=== PATIENT | female | born 1930 | race Caucasian/White ===

== ENCOUNTER 2018-07-25 07:42 | Inpatient (IN) | payer MEDICARE, MEDICAID ==
[~2018-07-25] VITALS: Ht 154.9 cm; Wt 72.7 kg
[~2018-07-25 07:42] MED LIST: ALBU18HF2 IH; COU1T PO; HCTZ25T PO; LISI-600 PO; LOP25T PO; PRED20TA PO; ZOC40T PO
[2018-07-25] MEDS ORDERED: normal saline 1000ML IV soln IVB ONE (08:30)
[2018-07-25 09:35] LABS: BASOPHILS % (AUTO) 0 % (0-1); EOSINOPHILS % (AUTO) 0 % (0-6); HEMATOCRIT 39.7 % (35.0-45.0); LYMPHOCYTES # (AUTO) 0.5 X10'3 (1.1-4.8); LYMPHOCYTES % (AUTO) 4.5 % (21-51); MEAN CORPUSCULAR HGB CONC 32.8 % (33.0-36.5); MEAN CORPUSCULAR VOLUME 94.5 FL (78-98); MONOCYTES # (AUTO) 0.5 X10'3 (0-0.9); MONOCYTES % (AUTO) 3.9 % (2-12); NEUTROPHILS # (AUTO) 10.6 X10'3 (1.8-7.7); NEUTROPHILS % (AUTO) 91.6 % (42-75); PLATELET COUNT 197 X10'3 (140-440); RED CELL DISTRIBUTION WIDTH 13.4 % (11.5-14.5); WHITE BLOOD COUNT 11.6 X10'3 (4.5-11.0)
[2018-07-25 09:48] LABS: ALANINE AMINOTRANSFERASE 23 U/L (12-78); ALBUMIN 3.3 G/DL (3.4-5.0); ALBUMIN/GLOBULIN RATIO 0.8 (1.1-1.5); ALKALINE PHOSPHATASE 71 IU/L (46-116); ANION GAP 10 (8-16); ASPARTATE AMINO TRANSFERASE 24 U/L (10-37); BILIRUBIN,TOTAL 0.6 MG/DL (0.1-1.0); BLOOD UREA NITROGEN 23 MG/DL (7-18); BUN/CREATININE RATIO 18.5 (6.6-38.0); CALCIUM 8.5 MG/DL (8.5-10.1); CHLORIDE 102 MMOL/L (99-107); CREATININE 1.24 MG/DL (0.40-0.90); GLUCOSE 149 MG/DL (70-104); POTASSIUM 4.3 MMOL/L (3.5-5.1); SODIUM 143 MMOL/L (135-145); TOTAL CARBON DIOXIDE 31.4 MMOL/L (24-32); TOTAL PROTEIN 7.3 G/DL (6.4-8.2); eGFR 41 ML/MIN
[2018-07-25 10:00] LABS: PLATELET ESTIMATE NORMAL; TOTAL CELLS COUNTED 100
[2018-07-25] MEDS ORDERED: levoFLOXACIN 750MG TABLET PO ONE (10:10)
[2018-07-25] MEDS ORDERED: DABI150C PO (10:37)
[2018-07-25] MEDS ORDERED: ASPI-41 PO (10:39)
[2018-07-25] MEDS ORDERED: ondansetron/PF 4mg/2ml inj IV PRN (14:05)
[2018-07-25] MEDS ORDERED: potassium Cl 40MEQ/NS 500ml 500 ML IV PRN ×2 (14:05)
[2018-07-25] MEDS ORDERED: magnesium Cl slow-release 64mg tablet PO PRN (14:05)
[2018-07-25] MEDS ORDERED: potassium Cl 20 mEq SR tablet PO PRN ×2 (14:05)
[2018-07-25] MEDS ORDERED: magnesium 4gm in 100ml NS 100 ML IV PRN (14:05)
[2018-07-25] MEDS ORDERED: ipratropium 0.5 MG/2.5ML nebule IH PRN (16:25)
[2018-07-25 19:30] VITALS: BP 147/64
[2018-07-25] MEDS: acetaminophen 325mg tablet PO PRN (20:17)
[2018-07-25] MEDS: metoprolol tartrate 25mg tablet PO SCH (20:33)
[2018-07-25] MEDS: methylPREDNISolone sod succ/PF 40mg inj. IV SCH (20:33)
[2018-07-25] MEDS: atorvastatin 20mg tablet PO SCH (20:33)
[2018-07-25] MEDS: lisinopril 20mg tablet PO SCH (20:33)
[2018-07-25] MEDS: dabigatran 150mg capsule PO SCH (20:35)
[2018-07-25 22:15] VITALS: BP 119/44
[2018-07-26 05:22] LABS: BASOPHILS % (AUTO) 0 % (0-1); EOSINOPHILS % (AUTO) 0 % (0-6); HEMATOCRIT 35.6 % (35.0-45.0); HEMOGLOBIN 11.6 g/dl (12.0-16.0); LYMPHOCYTES # (AUTO) 0.6 X10'3 (1.1-4.8); LYMPHOCYTES % (AUTO) 4.5 % (21-51); MEAN CORPUSCULAR HEMOGLOBIN 30.6 PG (27.0-31.0); MEAN CORPUSCULAR HGB CONC 32.6 % (33.0-36.5); MEAN CORPUSCULAR VOLUME 93.8 FL (78-98); MEAN PLATELET VOLUME 9.3 FL (7.4-10.4); MONOCYTES # (AUTO) 0.2 X10'3 (0-0.9); MONOCYTES % (AUTO) 1.3 % (2-12); NEUTROPHILS # (AUTO) 11.7 X10'3 (1.8-7.7); NEUTROPHILS % (AUTO) 94.2 % (42-75); PLATELET COUNT 204 X10'3 (140-440); RED CELL DISTRIBUTION WIDTH 13.6 % (11.5-14.5); WHITE BLOOD COUNT 12.4 X10'3 (4.5-11.0)
[2018-07-26 05:50] LABS: ALBUMIN 2.6 G/DL (3.4-5.0); ANION GAP 6 (8-16); BLOOD UREA NITROGEN 22 MG/DL (7-18); BUN/CREATININE RATIO 19.1 (6.6-38.0); CALCIUM 8.4 MG/DL (8.5-10.1); CHLORIDE 104 MMOL/L (99-107); CREATININE 1.15 MG/DL (0.40-0.90); GLUCOSE 133 MG/DL (70-104); MAGNESIUM 1.8 MG/DL (1.5-2.4); POTASSIUM 4.5 MMOL/L (3.5-5.1); SODIUM 142 MMOL/L (135-145); eGFR 45 ML/MIN
[2018-07-26] MEDS: K and/or MAG REPLACEMENT MC SCH (08:00)
[2018-07-26] MEDS: methylPREDNISolone sod succ/PF 40mg inj. IV SCH ×2 (08:42→20:40)
[2018-07-26] MEDS: pantoprazole 40mg Tablet.DR PO SCH (08:48)
[2018-07-26] MEDS: lisinopril 20mg tablet PO SCH ×2 (08:49→20:57)
[2018-07-26] MEDS: aspirin 81mg tablet.DR PO SCH (08:49)
[2018-07-26] MEDS: metoprolol tartrate 25mg tablet PO SCH ×2 (08:50→20:40)
[2018-07-26 09:07] VITALS: BP 141/52
[2018-07-26] MEDS: azithromycin/NS 500mg/250ml 250 ML IV SCH (09:34)
[2018-07-26] MEDS: dabigatran 150mg capsule PO SCH ×2 (10:49→20:40)
[2018-07-26] MEDS: CefTRIAXone/D5W-Rocephin 1gm 50 ML IV SCH (10:53)
[2018-07-26 12:42] VITALS: BP 143/94
[2018-07-26] MEDS ORDERED: ipratropium/albuterol 3ml nebule NEB PRN (14:25)
[2018-07-26] MEDS: ipratropium/albuterol 3ml nebule NEB SCH ×3 (16:08→23:00)
[2018-07-26 18:00] VITALS: BP 133/53
[2018-07-26] MEDS: lactobacillus rhamnosus 10,000 MMU CELLS/CAPSULE PO SCH (20:39)
[2018-07-26] MEDS: atorvastatin 20mg tablet PO SCH (20:40)
[2018-07-26] MEDS: acetaminophen 325mg tablet PO PRN (21:20)
[2018-07-26 22:00] VITALS: BP 120/102
[2018-07-27 06:00] VITALS: BP 145/82
[2018-07-27 07:26] LABS: ALBUMIN 2.8 G/DL (3.4-5.0); ANION GAP 10 (8-16); BLOOD UREA NITROGEN 34 MG/DL (7-18); BUN/CREATININE RATIO 30.4 (6.6-38.0); CALCIUM 8.7 MG/DL (8.5-10.1); CHLORIDE 103 MMOL/L (99-107); CREATININE 1.12 MG/DL (0.40-0.90); GLUCOSE 144 MG/DL (70-104); MAGNESIUM 2.1 MG/DL (1.5-2.4); SODIUM 139 MMOL/L (135-145); TOTAL CARBON DIOXIDE 26.2 MMOL/L (24-32); eGFR 46 ML/MIN
[2018-07-27 07:30] LABS: POTASSIUM 4.3 MMOL/L (3.5-5.1)
[2018-07-27] MEDS: CefTRIAXone/D5W-Rocephin 1gm 50 ML IV SCH (07:54)
[2018-07-27] MEDS: pantoprazole 40mg Tablet.DR PO SCH (07:54)
[2018-07-27] MEDS: methylPREDNISolone sod succ/PF 40mg inj. IV SCH ×2 (07:54→20:07)
[2018-07-27] MEDS: aspirin 81mg tablet.DR PO SCH (07:55)
[2018-07-27] MEDS: lactobacillus rhamnosus 10,000 MMU CELLS/CAPSULE PO SCH ×2 (07:55→20:08)
[2018-07-27] MEDS: dabigatran 150mg capsule PO SCH ×2 (07:55→20:07)
[2018-07-27] MEDS: lisinopril 20mg tablet PO SCH ×2 (07:55→20:08)
[2018-07-27] MEDS: K and/or MAG REPLACEMENT MC SCH (08:00)
[2018-07-27] MEDS: metoprolol tartrate 25mg tablet PO SCH ×2 (08:00→20:08)
[2018-07-27 08:04] LABS: BASOPHILS % (AUTO) 0.2 % (0-1); EOSINOPHILS % (AUTO) 0 % (0-6); HEMATOCRIT 36.2 % (35.0-45.0); HEMOGLOBIN 11.8 g/dl (12.0-16.0); LYMPHOCYTES # (AUTO) 0.7 X10'3 (1.1-4.8); LYMPHOCYTES % (AUTO) 4.1 % (21-51); MEAN CORPUSCULAR HEMOGLOBIN 30.6 PG (27.0-31.0); MEAN CORPUSCULAR HGB CONC 32.5 % (33.0-36.5); MEAN CORPUSCULAR VOLUME 94.2 FL (78-98); MEAN PLATELET VOLUME 9.3 FL (7.4-10.4); MONOCYTES # (AUTO) 0.5 X10'3 (0-0.9); MONOCYTES % (AUTO) 2.8 % (2-12); NEUTROPHILS # (AUTO) 15.5 X10'3 (1.8-7.7); NEUTROPHILS % (AUTO) 92.9 % (42-75); PLATELET COUNT 237 X10'3 (140-440); RED BLOOD COUNT 3.85 X10'6 (4.20-5.60); RED CELL DISTRIBUTION WIDTH 13.1 % (11.5-14.5); WHITE BLOOD COUNT 16.6 X10'3 (4.5-11.0)
[2018-07-27] MEDS: ipratropium/albuterol 3ml nebule NEB SCH ×5 (08:37→23:01)
[2018-07-27] MEDS: azithromycin/NS 500mg/250ml 250 ML IV SCH (09:53)
[2018-07-27 10:00] VITALS: BP 150/40
[2018-07-27 13:59] LABS: TOTAL CELLS COUNTED 100
[2018-07-27 14:00] LABS: PLATELET ESTIMATE NORMAL
[2018-07-27 18:00] VITALS: BP 136/62
[2018-07-27] MEDS: atorvastatin 20mg tablet PO SCH (20:08)
[2018-07-27] MEDS: guaiFENesin ER 600mg tablet PO SCH (20:08)
[2018-07-27 22:00] VITALS: BP 135/53
[2018-07-28 06:00] VITALS: BP 140/49
[2018-07-28 06:05] LABS: BASOPHILS % (AUTO) 0.1 % (0-1); EOSINOPHILS % (AUTO) 0 % (0-6); HEMATOCRIT 32.4 % (35.0-45.0); HEMOGLOBIN 10.7 g/dl (12.0-16.0); LYMPHOCYTES # (AUTO) 0.5 X10'3 (1.1-4.8); LYMPHOCYTES % (AUTO) 3.3 % (21-51); MEAN CORPUSCULAR HEMOGLOBIN 31.2 PG (27.0-31.0); MEAN CORPUSCULAR HGB CONC 33.1 % (33.0-36.5); MEAN CORPUSCULAR VOLUME 94.1 FL (78-98); MEAN PLATELET VOLUME 9.6 FL (7.4-10.4); MONOCYTES # (AUTO) 0.7 X10'3 (0-0.9); MONOCYTES % (AUTO) 4.8 % (2-12); NEUTROPHILS # (AUTO) 13.9 X10'3 (1.8-7.7); NEUTROPHILS % (AUTO) 91.8 % (42-75); PLATELET COUNT 222 X10'3 (140-440); RED BLOOD COUNT 3.44 X10'6 (4.20-5.60); RED CELL DISTRIBUTION WIDTH 13.1 % (11.5-14.5); WHITE BLOOD COUNT 15.1 X10'3 (4.5-11.0)
[2018-07-28 06:33] LABS: ALBUMIN 2.5 G/DL (3.4-5.0); ANION GAP 8 (8-16); BLOOD UREA NITROGEN 42 MG/DL (7-18); BUN/CREATININE RATIO 33.6 (6.6-38.0); CALCIUM 8.4 MG/DL (8.5-10.1); CHLORIDE 104 MMOL/L (99-107); CREATININE 1.25 MG/DL (0.40-0.90); GLUCOSE 138 MG/DL (70-104); MAGNESIUM 2.2 MG/DL (1.5-2.4); POTASSIUM 4.4 MMOL/L (3.5-5.1); SODIUM 141 MMOL/L (135-145); TOTAL CARBON DIOXIDE 29.1 MMOL/L (24-32); eGFR 41 ML/MIN
[2018-07-28] MEDS: CefTRIAXone/D5W-Rocephin 1gm 50 ML IV SCH (07:22)
[2018-07-28] MEDS: pantoprazole 40mg Tablet.DR PO SCH (07:34)
[2018-07-28] MEDS: lactobacillus rhamnosus 10,000 MMU CELLS/CAPSULE PO SCH ×2 (07:35→20:00)
[2018-07-28] MEDS: methylPREDNISolone sod succ/PF 40mg inj. IV SCH ×2 (07:35→19:58)
[2018-07-28] MEDS: aspirin 81mg tablet.DR PO SCH (07:35)
[2018-07-28] MEDS: dabigatran 150mg capsule PO SCH ×2 (07:41→20:00)
[2018-07-28] MEDS: guaiFENesin ER 600mg tablet PO SCH (07:41)
[2018-07-28] MEDS: lisinopril 20mg tablet PO SCH ×2 (07:42→20:00)
[2018-07-28] MEDS: metoprolol tartrate 25mg tablet PO SCH ×2 (07:43→20:00)
[2018-07-28] MEDS: K and/or MAG REPLACEMENT MC SCH (08:00)
[2018-07-28] MEDS: ipratropium/albuterol 3ml nebule NEB SCH ×4 (08:45→20:17)
[2018-07-28] MEDS: azithromycin/NS 500mg/250ml 250 ML IV SCH (09:19)
[2018-07-28 10:00] VITALS: BP 133/45
[2018-07-28 18:00] VITALS: BP 142/50
[2018-07-28] MEDS: atorvastatin 20mg tablet PO SCH (20:02)
[2018-07-28 22:00] VITALS: BP 98/71
[2018-07-28] MEDS: acetaminophen 325mg tablet PO PRN (23:57)
[2018-07-29 06:00] VITALS: BP 132/56
[2018-07-29 06:22] LABS: ALBUMIN 2.7 G/DL (3.4-5.0); ANION GAP 6 (8-16); BLOOD UREA NITROGEN 47 MG/DL (7-18); CALCIUM 8.1 MG/DL (8.5-10.1); CHLORIDE 105 MMOL/L (99-107); CREATININE 1.62 MG/DL (0.40-0.90); GLUCOSE 163 MG/DL (70-104); MAGNESIUM 2.2 MG/DL (1.5-2.4); POTASSIUM 4.3 MMOL/L (3.5-5.1); SODIUM 143 MMOL/L (135-145); TOTAL CARBON DIOXIDE 31.8 MMOL/L (24-32); eGFR 30 ML/MIN
[2018-07-29 06:32] LABS: BASOPHILS % (AUTO) 0 % (0-1); EOSINOPHILS % (AUTO) 0 % (0-6); HEMATOCRIT 33.7 % (35.0-45.0); HEMOGLOBIN 11.1 g/dl (12.0-16.0); LYMPHOCYTES # (AUTO) 0.4 X10'3 (1.1-4.8); MEAN CORPUSCULAR HEMOGLOBIN 30.7 PG (27.0-31.0); MEAN CORPUSCULAR HGB CONC 32.8 % (33.0-36.5); MEAN CORPUSCULAR VOLUME 93.8 FL (78-98); MEAN PLATELET VOLUME 9.9 FL (7.4-10.4); MONOCYTES # (AUTO) 0.7 X10'3 (0-0.9); MONOCYTES % (AUTO) 5.6 % (2-12); NEUTROPHILS # (AUTO) 12.3 X10'3 (1.8-7.7); NEUTROPHILS % (AUTO) 91.4 % (42-75); PLATELET COUNT 234 X10'3 (140-440); RED CELL DISTRIBUTION WIDTH 13.4 % (11.5-14.5); WHITE BLOOD COUNT 13.4 X10'3 (4.5-11.0)
[2018-07-29] MEDS: CefTRIAXone/D5W-Rocephin 1gm 50 ML IV SCH (07:40)
[2018-07-29] MEDS: methylPREDNISolone sod succ/PF 40mg inj. IV SCH (07:46)
[2018-07-29] MEDS: lactobacillus rhamnosus 10,000 MMU CELLS/CAPSULE PO SCH ×2 (07:46→19:32)
[2018-07-29] MEDS: aspirin 81mg tablet.DR PO SCH (07:46)
[2018-07-29] MEDS: dabigatran 150mg capsule PO SCH ×2 (07:47→19:32)
[2018-07-29] MEDS: pantoprazole 40mg Tablet.DR PO SCH (07:47)
[2018-07-29] MEDS: K and/or MAG REPLACEMENT MC SCH (07:58)
[2018-07-29] MEDS: lisinopril 20mg tablet PO SCH (08:01)
[2018-07-29] MEDS: metoprolol tartrate 25mg tablet PO SCH ×2 (08:01→19:34)
[2018-07-29] MEDS: ipratropium/albuterol 3ml nebule NEB SCH ×5 (08:36→23:00)
[2018-07-29] MEDS: azithromycin/NS 500mg/250ml 250 ML IV SCH (09:11)
[2018-07-29 10:00] VITALS: BP 155/61
[2018-07-29] MEDS: famotidine 20mg tablet PO SCH ×2 (10:00→19:32)
[2018-07-29 18:00] VITALS: BP 110/41
[2018-07-29] MEDS: acetaminophen 325mg tablet PO PRN (19:32)
[2018-07-29] MEDS: atorvastatin 20mg tablet PO SCH (19:32)
[2018-07-29 22:00] VITALS: BP 148/62
[2018-07-30 02:26] VITALS: BP 137/58
[2018-07-30 06:00] VITALS: BP 144/53
[2018-07-30 06:42] LABS: BASOPHILS % (AUTO) 0 % (0-1); EOSINOPHILS # (AUTO) 0.1 X10'3 (0-0.9); EOSINOPHILS % (AUTO) 0.5 % (0-6); HEMATOCRIT 36.3 % (35.0-45.0); HEMOGLOBIN 11.7 g/dl (12.0-16.0); LYMPHOCYTES % (AUTO) 7.1 % (21-51); MEAN CORPUSCULAR HEMOGLOBIN 30.3 PG (27.0-31.0); MEAN CORPUSCULAR HGB CONC 32.1 % (33.0-36.5); MEAN CORPUSCULAR VOLUME 94.4 FL (78-98); MEAN PLATELET VOLUME 9.2 FL (7.4-10.4); MONOCYTES # (AUTO) 1.4 X10'3 (0-0.9); MONOCYTES % (AUTO) 9.7 % (2-12); NEUTROPHILS # (AUTO) 11.6 X10'3 (1.8-7.7); NEUTROPHILS % (AUTO) 82.7 % (42-75); PLATELET COUNT 283 X10'3 (140-440); RED BLOOD COUNT 3.85 X10'6 (4.20-5.60)
[2018-07-30] MEDS: ipratropium/albuterol 3ml nebule NEB SCH ×4 (07:00→19:46)
[2018-07-30 07:19] LABS: ALBUMIN 2.7 G/DL (3.4-5.0); ANION GAP 6 (8-16); BLOOD UREA NITROGEN 44 MG/DL (7-18); BUN/CREATININE RATIO 38.6 (6.6-38.0); CALCIUM 8.3 MG/DL (8.5-10.1); CHLORIDE 108 MMOL/L (99-107); CREATININE 1.14 MG/DL (0.40-0.90); GLUCOSE 93 MG/DL (70-104); MAGNESIUM 2.4 MG/DL (1.5-2.4); POTASSIUM 4.4 MMOL/L (3.5-5.1); SODIUM 145 MMOL/L (135-145); TOTAL CARBON DIOXIDE 30.7 MMOL/L (24-32); eGFR 45 ML/MIN
[2018-07-30] MEDS: K and/or MAG REPLACEMENT MC SCH (08:00)
[2018-07-30] MEDS: CefTRIAXone/D5W-Rocephin 1gm 50 ML IV SCH (09:27)
[2018-07-30] MEDS: lactobacillus rhamnosus 10,000 MMU CELLS/CAPSULE PO SCH ×2 (09:31→20:32)
[2018-07-30] MEDS: pantoprazole 40mg Tablet.DR PO SCH (09:31)
[2018-07-30] MEDS: aspirin 81mg tablet.DR PO SCH (09:32)
[2018-07-30] MEDS: metoprolol tartrate 25mg tablet PO SCH (09:33)
[2018-07-30] MEDS: dabigatran 150mg capsule PO SCH ×2 (09:33→20:32)
[2018-07-30] MEDS: predniSONE 20 mg tablet PO SCH (09:34)
[2018-07-30] MEDS: lisinopril 20mg tablet PO SCH (09:36)
[2018-07-30 10:00] VITALS: BP 132/67
[2018-07-30] MEDS: azithromycin/NS 500mg/250ml 250 ML IV SCH (10:59)
[2018-07-30 18:00] VITALS: BP 143/60
[2018-07-30] MEDS ORDERED: metoprolol tartrate 25mg tablet PO SCH (20:00)
[2018-07-30] MEDS: atorvastatin 20mg tablet PO SCH (20:33)
[2018-07-30] MEDS: famotidine 20mg tablet PO SCH (20:33)
[2018-07-30 22:00] VITALS: BP 114/42
[2018-07-31 06:00] VITALS: BP 119/60
[2018-07-31] MEDS: ipratropium/albuterol 3ml nebule NEB SCH ×2 (07:37→10:06)
[2018-07-31] MEDS: K and/or MAG REPLACEMENT MC SCH (08:00)
[2018-07-31] MEDS: CefTRIAXone/D5W-Rocephin 1gm 50 ML IV SCH (09:11)
[2018-07-31] MEDS: aspirin 81mg tablet.DR PO SCH (09:16)
[2018-07-31] MEDS: lactobacillus rhamnosus 10,000 MMU CELLS/CAPSULE PO SCH (09:16)
[2018-07-31] MEDS: predniSONE 20 mg tablet PO SCH (09:17)
[2018-07-31] MEDS ORDERED: metoprolol tartrate 12.5mg (1/2 tablet) PO SCH (09:30)
[2018-07-31] MEDS: pantoprazole 40mg Tablet.DR PO SCH (09:31)
[2018-07-31] MEDS: lisinopril 20mg tablet PO SCH (09:31)
[2018-07-31] MEDS: dabigatran 150mg capsule PO SCH (09:31)
[2018-07-31 10:00] VITALS: BP 128/43
[2018-07-31] MEDS: azithromycin/NS 500mg/250ml 250 ML IV SCH (10:44)
== END 2018-07-31 12:45 | DRG 871 ==
LOC: ER 07:43 → ED HOLD 14:01 → ORTHO 4S 19:30
PROVIDERS: ADMIT Internal Medicine; ATTEND Family Medicine
DX: A41.9 Sepsis, unspecified organism (principal); J18.9 Pneumonia, unspecified organism; J96.21 Acute and chronic respiratory failure with hypoxia; J44.1 Chronic obstructive pulmonary disease with (acute) exacerbation; J44.0 Chronic obstructive pulmonary disease with (acute) lower respiratory infection; D64.9 Anemia, unspecified; E78.5 Hyperlipidemia, unspecified; E83.51 Hypocalcemia; I25.10 Atherosclerotic heart disease of native coronary artery without angina pectoris; R00.1 Bradycardia, unspecified; I12.9 Hypertensive chronic kidney disease with stage 1 through stage 4 chronic kidney disease, or unspecified chronic kidney disease; I48.2 Chronic atrial fibrillation; N18.9 Chronic kidney disease, unspecified; Z66 Do not resuscitate; Z90.49 Acquired absence of other specified parts of digestive tract; Z95.1 Presence of aortocoronary bypass graft; Z99.81 Dependence on supplemental oxygen; Z79.82 Long term (current) use of aspirin; Z82.3 Family history of stroke
CPT/HCPCS: 36415; 71045; 80048; 80053; 83605; 83735; 83880; 85025; 87070; 93005; 93306; 94640; 94667; 94760; 97110; 97116; 97161; 97530; 99285; G0378; J0456; J0696; J2405; J2920; J7512

== ENCOUNTER 2018-09-11 04:51 | Inpatient (IN) | payer MEDICARE, MEDICAID | END 2018-09-14 15:27 | LOC: ER 04:51 → ED HOLD 07:20 → SUR 3N 08:51 | DX: J96.90 Respiratory failure, unspecified, unspecified whether with hypoxia or hypercapnia (principal); N17.9 Acute kidney failure, unspecified; I50.30 Unspecified diastolic (congestive) heart failure; J44.1 Chronic obstructive pulmonary disease with (acute) exacerbation; E78.5 Hyperlipidemia, unspecified; E86.0 Dehydration; Z95.1 Presence of aortocoronary bypass graft; I25.10 Atherosclerotic heart disease of native coronary artery without angina pectoris; I48.2 Chronic atrial fibrillation; I34.0 Nonrheumatic mitral (valve) insufficiency ==

== ENCOUNTER 2019-02-27 21:27 | Inpatient (IN) | payer MEDICARE, MEDICAID ==
[~2019-02-27] VITALS: Ht 154.9 cm; Wt 71.9 kg
[~2019-02-27 21:27] MED LIST changes: -COU1T PO; +DABI150C PO; +FURO20TA4 PO; -HCTZ25T PO; +POTA10TA10 PO; -PRED20TA PO
[2019-02-27] MEDS ORDERED: ipratropium/albuterol 3ml nebule ONE (21:45)
[2019-02-27] MEDS ORDERED: methylPREDNISolone sod succ 125mg/2ml vial IV ONE (21:45)
[2019-02-27] MEDS ORDERED: ipratropium/albuterol 3ml nebule NEB ONE (21:45)
--- NOTE | 2019-02-27 21:54 | NUR ---
HAM, CAREGIVER, CELL PHONE, LIVES WITH PT
[2019-02-27] MEDS ORDERED: albuterol 2.5 MG/3 ML nebule CONTNEB PRN (22:00)
[2019-02-27 22:07] LABS: BASOPHILS # (AUTO) 0.1 X10'3 (0-0.2); BASOPHILS % (AUTO) 0.9 % (0-1); EOSINOPHILS # (AUTO) 0.7 X10'3 (0-0.9); EOSINOPHILS % (AUTO) 5.6 % (0-6); HEMATOCRIT 38.2 % (35.0-45.0); HEMOGLOBIN 12.3 g/dl (12.0-16.0); LYMPHOCYTES # (AUTO) 3.1 X10'3 (1.1-4.8); MEAN CORPUSCULAR HEMOGLOBIN 29.9 PG (27.0-31.0); MEAN CORPUSCULAR HGB CONC 32.1 g/dL (33.0-36.5); MEAN CORPUSCULAR VOLUME 93.1 FL (78-98); MEAN PLATELET VOLUME 9.7 FL (7.4-10.4); MONOCYTES # (AUTO) 1.1 X10'3 (0-0.9); MONOCYTES % (AUTO) 8.8 % (2-12); NEUTROPHILS # (AUTO) 7.8 X10'3 (1.8-7.7); NEUTROPHILS % (AUTO) 60.7 % (42-75); PLATELET COUNT 250 X10'3 (140-440); RED CELL DISTRIBUTION WIDTH 15.4 % (11.5-14.5); WHITE BLOOD COUNT 12.8 X10'3 (4.5-11.0)
--- NOTE | 2019-02-27 22:17 | NUR ---
GAVE PT SVN TREATMENT THEN CONTINUOUS NEB TX, PER DR EMERY HOLD BIPAP AND ABG UNTIL PT RE-EVALUATED AFTER TREATMENTS TO SEE IF ABG AND BIPAP STILL NEEDED
[2019-02-27 22:21] LABS: PARTIAL THROMBOPLASTIN TIME 26 SECONDS (22-32)
[2019-02-27 22:27] LABS: ALANINE AMINOTRANSFERASE 19 U/L (12-78); ALBUMIN 3.4 G/DL (3.4-5.0); ALBUMIN/GLOBULIN RATIO 0.8 (1.1-1.5); ALKALINE PHOSPHATASE 78 IU/L (46-116); ANION GAP 4 (8-16); ASPARTATE AMINO TRANSFERASE 15 U/L (10-37); BILIRUBIN,TOTAL 0.4 MG/DL (0.1-1.0); BLOOD UREA NITROGEN 30 MG/DL (7-18); BUN/CREATININE RATIO 21.3 (6.6-38.0); CALCIUM 9.4 MG/DL (8.5-10.1); CHLORIDE 102 MMOL/L (99-107); CREATININE 1.41 MG/DL (0.40-0.90); GLUCOSE 187 MG/DL (70-104); SODIUM 138 MMOL/L (135-145); TOTAL CARBON DIOXIDE 32.3 MMOL/L (24-32); TOTAL PROTEIN 7.8 G/DL (6.4-8.2); eGFR 35 ML/MIN
[2019-02-27 22:34] LABS: POTASSIUM 6.3 MMOL/L (3.5-5.1)
--- NOTE | 2019-02-27 22:39 | NUR ---
Continuous neb running as ordered. Pt resting in gurney and warm blankets given for comfort.
[2019-02-27] MEDS ORDERED: dextrose 50%-water 50ml dispensing syringe IV ONE (22:40)
[2019-02-27] MEDS ORDERED: furosemide 10 MG/1 ML 10ml inj IV ONE (22:40)
[2019-02-27] MEDS ORDERED: insulin regular, human 10 units/0.1 ml syringe IV ONE (22:40)
[2019-02-27] MEDS ORDERED: sodium bicarbonate (8.4%) 1 mEq/ml syringe IV ONE (22:40)
[2019-02-27] MEDS ORDERED: calcium chloride 100 MG/1 ML inj IV ONE (22:40)
[2019-02-27] MEDS ORDERED: furosemide 40mg/4ml inj IV ONE (23:05)
[2019-02-27 23:11] LABS: ABG HCO3 29.5 mmol/L (22.0-26.0); ABG OXYGEN SATURATION 99.2 % (95-98); ABG PCO2 (T) 58.4 mmHg (32.0-45.0); ABG PH (T) 7.319 (7.350-7.450); ABG PO2 (T) 241.8 mmHg (83-108); ALLEN'S TEST Positive; FCOHb 0.2 % (0.5-1.5); FLOW 5 L/min; FMetHb 0.2 % (0.3-1.12); FO2Hb 98.8 % (94-100); PATIENT TEMPERATURE 36.7; RESPIRATORY RATE (OBSERVED) 24 b/min; TOTAL HEMOGLOBIN 12.8 G/dl (12.0-16.0)
[2019-02-28] MEDS ORDERED: magnesium 4gm in 100ml NS 100 ML IV PRN (01:30)
[2019-02-28] MEDS ORDERED: ondansetron/PF 4mg/2ml inj IV PRN (01:30)
[2019-02-28] MEDS ORDERED: mag hydrox/Alum hydrox/simeth 30ml oral suspension PO PRN (01:30)
[2019-02-28] MEDS ORDERED: potassium CL 10mEq/100ml bag 100 ML IV PRN ×2 (01:30)
[2019-02-28] MEDS ORDERED: docusate sod 100mg capsule PO PRN (01:30)
[2019-02-28] MEDS ORDERED: magnesium 2GM in 50ml NS 50 ML IV PRN (01:30)
[2019-02-28] MEDS ORDERED: acetaminophen 325mg tablet PO PRN (01:30)
[2019-02-28] MEDS ORDERED: potassium Cl 20 mEq SR tablet PO PRN ×2 (01:30)
[2019-02-28] MEDS ORDERED: magnesium Cl slow-release 64mg tablet PO PRN (01:30)
[2019-02-28 02:00] VITALS: BP 176/71
[2019-02-28] MEDS ORDERED: ipratropium/albuterol 3ml nebule NEB SCH (02:00)
[2019-02-28 02:22] LABS: ALANINE AMINOTRANSFERASE 20 U/L (12-78); ALBUMIN 3.5 G/DL (3.4-5.0); ALBUMIN/GLOBULIN RATIO 0.8 (1.1-1.5); ALKALINE PHOSPHATASE 75 IU/L (46-116); ANION GAP 6 (8-16); ASPARTATE AMINO TRANSFERASE 19 U/L (10-37); BILIRUBIN,TOTAL 0.7 MG/DL (0.1-1.0); BLOOD UREA NITROGEN 34 MG/DL (7-18); CALCIUM 10.8 MG/DL (8.5-10.1); CHLORIDE 103 MMOL/L (99-107); CREATININE 1.36 MG/DL (0.40-0.90); GLUCOSE 128 MG/DL (70-104); SODIUM 140 MMOL/L (135-145); TOTAL CARBON DIOXIDE 31.4 MMOL/L (24-32); eGFR 37 ML/MIN
[2019-02-28 02:27] LABS: POTASSIUM 5.2 MMOL/L (3.5-5.1)
--- NOTE | 2019-02-28 06:10 | NUR ---
Patient in room PCU 3012. I have received report from Lanny CAMACHO and had the opportunity to ask questions and assume patient care.
--- NOTE | 2019-02-28 06:25 | NUR ---
Problems reprioritized. Patient report given, questions answered & plan of care reviewed with Gary CAMACHO.
[2019-02-28 06:50] VITALS: BP 153/76
[2019-02-28] MEDS: ipratropium/albuterol 3ml nebule NEB SCH ×4 (07:10→19:45)
[2019-02-28] MEDS: metoprolol tartrate 25mg tablet PO SCH ×2 (07:27→19:53)
[2019-02-28] MEDS: apixaban 5mg tablet PO SCH ×2 (07:27→19:53)
[2019-02-28] MEDS: montelukast 10mg tablet PO SCH (07:28)
[2019-02-28] MEDS: K and/or MAG REPLACEMENT MC SCH (08:00)
[2019-02-28] MEDS: furosemide 40mg/4ml inj IV SCH ×2 (08:49→19:53)
[2019-02-28 11:00] VITALS: BP 142/57
--- NOTE | 2019-02-28 12:04 | NUR ---
Malnutrition consult/nutrition consult regarding pt not wearing her dentures: Pt s/p BSS 02/[address] shades mechanical soft food with ground meat and thin liquids d/t difficulty chewing r/t absence of teeth. Pt documented with 50-75% first meal likely meeting nutrient needs for geriatric age. Current wt is stable with UBW per EMR wt hx. Pt with no significant decrease in muscle strength however with 1+ trace edema to right leg and 2+ edema to left leg. Pt currently lacks a minimum of two criteria for malnutrition. Will continue to follow. Addendum: 02/28/19 at [address] Amended: Links added.
[2019-02-28 15:00] VITALS: BP 131/53
[2019-02-28] MEDS: levoFLOXACIN-Levaquin 500mg/D5 100 ML IV SCH (17:33)
--- NOTE | 2019-02-28 18:25 | NUR ---
Problems reprioritized. Patient report given, questions answered & plan of care reviewed with Alannah CAMACHO.
[2019-02-28 19:00] VITALS: BP 111/45
[2019-02-28] MEDS ORDERED: albuterol 2.5 MG/3 ML nebule NEB SCH (20:00)
[2019-02-28] MEDS: atorvastatin 20mg tablet PO SCH (21:08)
[2019-02-28 23:00] VITALS: BP 117/41
[2019-03-01] MEDS: ipratropium/albuterol 3ml nebule NEB SCH ×7 (00:05→22:51)
[2019-03-01 03:00] VITALS: BP 121/47
[2019-03-01 06:00] VITALS: BP 109/44
--- NOTE | 2019-03-01 06:19 | NUR ---
Problems reprioritized. Patient report given, questions answered & plan of care reviewed with Catherine CAMACHO.
--- NOTE | 2019-03-01 06:19 | NUR ---
Patient in room PCU 3012. I have received report from JANICE Jaffe and had the opportunity to ask questions and assume patient care.
[2019-03-01 06:45] LABS: BASOPHILS # (AUTO) 0.1 X10'3 (0-0.2); BASOPHILS % (AUTO) 0.5 % (0-1); EOSINOPHILS % (AUTO) 0.3 % (0-6); HEMOGLOBIN 10.5 g/dl (12.0-16.0); LYMPHOCYTES # (AUTO) 1.5 X10'3 (1.1-4.8); LYMPHOCYTES % (AUTO) 9.2 % (21-51); MEAN CORPUSCULAR HGB CONC 32.9 g/dL (33.0-36.5); MEAN CORPUSCULAR VOLUME 91.1 FL (78-98); MEAN PLATELET VOLUME 9.9 FL (7.4-10.4); MONOCYTES # (AUTO) 1.3 X10'3 (0-0.9); NEUTROPHILS # (AUTO) 13.2 X10'3 (1.8-7.7); PLATELET COUNT 210 X10'3 (140-440); RED BLOOD COUNT 3.52 X10'6 (4.20-5.60); RED CELL DISTRIBUTION WIDTH 15.2 % (11.5-14.5); WHITE BLOOD COUNT 16.1 X10'3 (4.5-11.0)
[2019-03-01 07:10] LABS: ALANINE AMINOTRANSFERASE 17 U/L (12-78); ALBUMIN/GLOBULIN RATIO 0.8 (1.1-1.5); ANION GAP 8 (8-16); ASPARTATE AMINO TRANSFERASE 17 U/L (10-37); BILIRUBIN,TOTAL 0.3 MG/DL (0.1-1.0); BLOOD UREA NITROGEN 46 MG/DL (7-18); BUN/CREATININE RATIO 29.5 (6.6-38.0); CALCIUM 9.2 MG/DL (8.5-10.1); CHLORIDE 101 MMOL/L (99-107); CREATININE 1.56 MG/DL (0.40-0.90); GLUCOSE 109 MG/DL (70-104); MAGNESIUM 1.8 MG/DL (1.5-2.4); POTASSIUM 4.3 MMOL/L (3.5-5.1); SODIUM 141 MMOL/L (135-145); TOTAL CARBON DIOXIDE 32.1 MMOL/L (24-32); TOTAL PROTEIN 6.6 G/DL (6.4-8.2); eGFR 31 ML/MIN
[2019-03-01 07:11] LABS: ALKALINE PHOSPHATASE 59 IU/L (46-116)
[2019-03-01] MEDS: K and/or MAG REPLACEMENT MC SCH (07:13)
[2019-03-01] MEDS: apixaban 5mg tablet PO SCH ×2 (07:26→19:58)
[2019-03-01] MEDS: montelukast 10mg tablet PO SCH (07:26)
[2019-03-01] MEDS: metoprolol tartrate 25mg tablet PO SCH ×2 (07:31→19:59)
[2019-03-01] MEDS: levoFLOXACIN-Levaquin 500mg/D5 100 ML IV SCH (07:32)
[2019-03-01] MEDS: furosemide 40mg/4ml inj IV SCH ×2 (07:32→20:34)
[2019-03-01 11:00] VITALS: BP 117/36
--- NOTE | 2019-03-01 11:14 | NUR ---
PAGER ID: [phone] MESSAGE: [phone] Deborah Gilman. 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 pt. was asking to keep it at bedside. no current EMAR orders for this med. please advise. Erinn [phone] Addendum: 03/01/19 at 1754 by Erinn Kurtz RN took inhaler to the pharmacy. pt. is aware.
--- NOTE | 2019-03-01 13:33 | NUR ---
pt. had an episode of emesis around 0115. pt. stated that she had finished lunch about 5 minutes before hand and layed down in bed when it occurred. pt. had no bout of nausea before or after she threw up. pt. stated this has occurred before when she lays down to soon after eating. pt. shows no signs of distress.
[2019-03-01 15:00] VITALS: BP 113/36
[2019-03-01] MEDS ORDERED: acetaminophen 325mg tablet PO PRN (16:10)
--- NOTE | 2019-03-01 17:59 | NUR ---
[place] Medication Administration: For this medication-pass time frame, all medication were reviewed, dispensed, administered and documented per hospital policy by JANICE Plasencia.
--- NOTE | 2019-03-01 17:59 | NUR ---
[place] documentation: I have reviewed and agree with all interventions, assessments performed and documented by JANICE Plasencia.
[2019-03-01 18:00] VITALS: BP 103/42
--- NOTE | 2019-03-01 18:12 | NUR ---
Problems reprioritized. Patient report given, questions answered & plan of care reviewed with JANICE Jaffe.
--- NOTE | 2019-03-01 18:12 | NUR ---
Patient in room PCU 3012. I have received report from Erinn CAMACHO and had the opportunity to ask questions and assume patient care.
[2019-03-01] MEDS: lactobacillus rhamnosus 10,000 MMU CELLS/CAPSULE PO SCH (19:59)
[2019-03-01] MEDS: atorvastatin 20mg tablet PO SCH (20:04)
[2019-03-01 23:00] VITALS: BP 102/43
[2019-03-02 02:00] VITALS: BP 100/46
[2019-03-02] MEDS: ipratropium/albuterol 3ml nebule NEB SCH ×6 (02:45→23:37)
[2019-03-02 05:42] LABS: ALANINE AMINOTRANSFERASE 14 U/L (12-78); ALBUMIN 3.1 G/DL (3.4-5.0); ALBUMIN/GLOBULIN RATIO 0.8 (1.1-1.5); ALKALINE PHOSPHATASE 66 IU/L (46-116); ANION GAP 10 (8-16); ASPARTATE AMINO TRANSFERASE 17 U/L (10-37); BILIRUBIN,TOTAL 0.3 MG/DL (0.1-1.0); BLOOD UREA NITROGEN 51 MG/DL (7-18); BUN/CREATININE RATIO 28.3 (6.6-38.0); CALCIUM 9.1 MG/DL (8.5-10.1); CHLORIDE 100 MMOL/L (99-107); GLUCOSE 90 MG/DL (70-104); MAGNESIUM 1.8 MG/DL (1.5-2.4); POTASSIUM 4.1 MMOL/L (3.5-5.1); SODIUM 141 MMOL/L (135-145); TOTAL CARBON DIOXIDE 31.4 MMOL/L (24-32); TOTAL PROTEIN 6.9 G/DL (6.4-8.2); eGFR 27 ML/MIN
[2019-03-02 06:00] VITALS: BP 107/48
--- NOTE | 2019-03-02 06:20 | NUR ---
Patient in room PCU 3012. I have received report from JANICE Jaffe and had the opportunity to ask questions and assume patient care.
--- NOTE | 2019-03-02 06:50 | NUR ---
Problems reprioritized. Patient report given, questions answered & plan of care reviewed with Madi CAMACHO.
[2019-03-02 07:00] LABS: BASOPHILS # (AUTO) 0.1 X10'3 (0-0.2); BASOPHILS % (AUTO) 0.9 % (0-1); EOSINOPHILS # (AUTO) 0.5 X10'3 (0-0.9); EOSINOPHILS % (AUTO) 4.2 % (0-6); HEMATOCRIT 34.4 % (35.0-45.0); HEMOGLOBIN 11.3 g/dl (12.0-16.0); LYMPHOCYTES # (AUTO) 2.3 X10'3 (1.1-4.8); LYMPHOCYTES % (AUTO) 17.8 % (21-51); MEAN CORPUSCULAR HEMOGLOBIN 30.1 PG (27.0-31.0); MEAN CORPUSCULAR HGB CONC 32.9 g/dL (33.0-36.5); MEAN CORPUSCULAR VOLUME 91.5 FL (78-98); MEAN PLATELET VOLUME 9.4 FL (7.4-10.4); MONOCYTES # (AUTO) 1.3 X10'3 (0-0.9); MONOCYTES % (AUTO) 10.3 % (2-12); NEUTROPHILS # (AUTO) 8.5 X10'3 (1.8-7.7); NEUTROPHILS % (AUTO) 66.8 % (42-75); PLATELET COUNT 218 X10'3 (140-440); RED BLOOD COUNT 3.76 X10'6 (4.20-5.60); WHITE BLOOD COUNT 12.8 X10'3 (4.5-11.0)
[2019-03-02] MEDS: K and/or MAG REPLACEMENT MC SCH (07:03)
[2019-03-02] MEDS: furosemide 40mg/4ml inj IV SCH ×2 (07:05→22:01)
[2019-03-02] MEDS: metoprolol tartrate 25mg tablet PO SCH ×3 (07:05→22:14)
[2019-03-02] MEDS: montelukast 10mg tablet PO SCH (07:05)
[2019-03-02] MEDS: lactobacillus rhamnosus 10,000 MMU CELLS/CAPSULE PO SCH ×2 (07:05→22:01)
[2019-03-02] MEDS: apixaban 5mg tablet PO SCH ×2 (07:05→22:02)
[2019-03-02 11:00] VITALS: BP 103/52
[2019-03-02 15:00] VITALS: BP 124/87
[2019-03-02 18:15] VITALS: BP 81/43
--- NOTE | 2019-03-02 18:24 | NUR ---
Problems reprioritized. Patient report given, questions answered & plan of care reviewed with JANICE Oropeza.
--- NOTE | 2019-03-02 18:57 | NUR ---
Patient in room U 3012. I have received report from Edson Singh and had the opportunity to ask questions and assume patient care. Addendum: 03/02/19 at 1858 by Lucy Martinez RN Amended: Links added.
--- NOTE | 2019-03-02 21:30 | NUR ---
pt on side resting eyes closed without changes
[2019-03-02 22:00] VITALS: BP 122/59
[2019-03-02] MEDS: atorvastatin 20mg tablet PO SCH (22:03)
--- NOTE | 2019-03-02 23:10 | NUR ---
pt awake up to brp had taken meds earilier no complaints of pain. sob with little exertion to and from the commode. Rt in with pt.
--- NOTE | 2019-03-03 00:05 | NUR ---
pt resting eyes closed no s&s of distress at this time.
--- NOTE | 2019-03-03 02:00 | NUR ---
resting on her side no s&s of distress.
[2019-03-03 03:00] VITALS: BP 112/68
[2019-03-03] MEDS: ipratropium/albuterol 3ml nebule NEB SCH ×3 (03:05→12:05)
--- NOTE | 2019-03-03 04:00 | NUR ---
resting eyes closed without s&s of distress at this time.
--- NOTE | 2019-03-03 05:38 | NUR ---
resting without changes.
[2019-03-03 06:00] VITALS: BP 109/43
[2019-03-03 06:23] LABS: BASOPHILS # (AUTO) 0.1 X10'3 (0-0.2); BASOPHILS % (AUTO) 0.6 % (0-1); EOSINOPHILS # (AUTO) 0.6 X10'3 (0-0.9); EOSINOPHILS % (AUTO) 6.1 % (0-6); HEMATOCRIT 37.5 % (35.0-45.0); HEMOGLOBIN 12.3 g/dl (12.0-16.0); LYMPHOCYTES # (AUTO) 1.8 X10'3 (1.1-4.8); LYMPHOCYTES % (AUTO) 18.6 % (21-51); MEAN CORPUSCULAR HEMOGLOBIN 30.1 PG (27.0-31.0); MEAN CORPUSCULAR HGB CONC 32.7 g/dL (33.0-36.5); MEAN CORPUSCULAR VOLUME 92.1 FL (78-98); MEAN PLATELET VOLUME 9.6 FL (7.4-10.4); MONOCYTES % (AUTO) 10.4 % (2-12); NEUTROPHILS # (AUTO) 6.3 X10'3 (1.8-7.7); NEUTROPHILS % (AUTO) 64.3 % (42-75); PLATELET COUNT 198 X10'3 (140-440); RED BLOOD COUNT 4.07 X10'6 (4.20-5.60); RED CELL DISTRIBUTION WIDTH 15.4 % (11.5-14.5); WHITE BLOOD COUNT 9.7 X10'3 (4.5-11.0)
[2019-03-03 06:26] LABS: ALANINE AMINOTRANSFERASE 17 U/L (12-78); ALBUMIN 3.3 G/DL (3.4-5.0); ALBUMIN/GLOBULIN RATIO 0.9 (1.1-1.5); ALKALINE PHOSPHATASE 64 IU/L (46-116); ANION GAP 7 (8-16); ASPARTATE AMINO TRANSFERASE 20 U/L (10-37); BILIRUBIN,TOTAL 0.5 MG/DL (0.1-1.0); BLOOD UREA NITROGEN 53 MG/DL (7-18); CALCIUM 9.3 MG/DL (8.5-10.1); CHLORIDE 100 MMOL/L (99-107); CREATININE 1.71 MG/DL (0.40-0.90); GLUCOSE 103 MG/DL (70-104); MAGNESIUM 2.1 MG/DL (1.5-2.4); POTASSIUM 3.9 MMOL/L (3.5-5.1); SODIUM 141 MMOL/L (135-145); TOTAL CARBON DIOXIDE 34.5 MMOL/L (24-32); TOTAL PROTEIN 7.1 G/DL (6.4-8.2); eGFR 28 ML/MIN
--- NOTE | 2019-03-03 06:36 | NUR ---
Patient in room PCU 3012. I have received report from Arlene and had the opportunity to ask questions and assume patient care.
[2019-03-03] MEDS: K and/or MAG REPLACEMENT MC SCH (07:09)
[2019-03-03] MEDS: furosemide 40mg/4ml inj IV SCH (07:17)
[2019-03-03] MEDS: metoprolol tartrate 25mg tablet PO SCH (07:17)
[2019-03-03] MEDS: lactobacillus rhamnosus 10,000 MMU CELLS/CAPSULE PO SCH (07:17)
[2019-03-03] MEDS: montelukast 10mg tablet PO SCH (07:17)
[2019-03-03] MEDS: apixaban 5mg tablet PO SCH (07:17)
[2019-03-03] MEDS ORDERED: levoFLOXACIN-Levaquin 500mg/D5 100 ML IV SCH (08:00)
[2019-03-03] MEDS ORDERED: levoFLOXACIN-Levaquin 750MG/D5 150 ML IV SCH (08:00)
[2019-03-03 12:00] VITALS: BP 97/41
--- NOTE | 2019-03-03 13:27 | NUR ---
Report given to JOANNA Figueroa at [facility].
--- NOTE | 2019-03-03 15:42 | NUR ---
Picked up to [facility].
== END 2019-03-03 15:00 | DRG 291 ==
LOC: ER 21:27 → PCU 3S 02-28 01:59 → CMPBEDREQ 02-28 02:18
PROVIDERS: ADMIT Family Medicine; ATTEND Family Medicine
DX: I13.0 Hypertensive heart and chronic kidney disease with heart failure and stage 1 through stage 4 chronic kidney disease, or unspecified chronic kidney disease (principal); J96.20 Acute and chronic respiratory failure, unspecified whether with hypoxia or hypercapnia; I50.43 Acute on chronic combined systolic (congestive) and diastolic (congestive) heart failure; J44.1 Chronic obstructive pulmonary disease with (acute) exacerbation; E87.5 Hyperkalemia; D64.9 Anemia, unspecified; E78.5 Hyperlipidemia, unspecified; I25.10 Atherosclerotic heart disease of native coronary artery without angina pectoris; R11.10 Vomiting, unspecified; I34.0 Nonrheumatic mitral (valve) insufficiency; I48.91 Unspecified atrial fibrillation; N18.9 Chronic kidney disease, unspecified; Z77.22 Contact with and (suspected) exposure to environmental tobacco smoke (acute) (chronic); Z82.49 Family history of ischemic heart disease and other diseases of the circulatory system; Z82.5 Family history of asthma and other chronic lower respiratory diseases; Z90.49 Acquired absence of other specified parts of digestive tract; Z95.1 Presence of aortocoronary bypass graft; Z79.899 Other long term (current) drug therapy; Z99.81 Dependence on supplemental oxygen
CPT/HCPCS: 36415; 36600; 71045; 80053; 82803; 83605; 83735; 83880; 85018; 85025; 85610; 85730; 87040; 87081; 92508; 92616; 93005; 93306; 94640; 94667; 94668; 94760; 96374; 96375; 97110; 97116; 97161; 97530; 99285; G0378; J1815; J1940; J1956; J2930

== ENCOUNTER 2019-05-18 10:09 | Inpatient (IN) | payer MEDICARE, MEDICAID ==
[~2019-05-18] VITALS: Ht 154.9 cm; Wt 85.0 kg
[~2019-05-18 10:09] MED LIST changes: -DABI150C PO
--- NOTE | 2019-05-18 10:26 | NUR ---
RT AT BEDSIDE AND PLANNING TO DO AN ABG
[2019-05-18] MEDS ORDERED: methylPREDNISolone sod succ 125mg/2ml vial IV ONE (10:40)
[2019-05-18] MEDS ORDERED: ipratropium/albuterol 3ml nebule NEB ONE (10:40)
[2019-05-18 10:46] LABS: ABG BASE EXCESS 3.5 mmol/L (-2.0-3.0); ABG HCO3 28.5 mmol/L (22.0-26.0); ABG OXYGEN SATURATION 98.7 % (95-98); ABG PCO2 (T) 45.2 mmHg (35.0-45.0); ABG PH (T) 7.418 (7.350-7.450); ABG PO2 (T) 174.7 mmHg (83-108); FCOHb 0.2 % (0.5-1.5); FLOW 15 L/min; FMetHb 0.1 % (0.3-1.12); FO2Hb 98.4 % (94-100); PEEP 5 cm H2O; TOTAL HEMOGLOBIN 11.6 G/dl (12.0-16.0)
[2019-05-18 11:10] LABS: BASOPHILS % (AUTO) 0.3 % (0-1); EOSINOPHILS # (AUTO) 0.1 X10'3 (0-0.9); EOSINOPHILS % (AUTO) 0.5 % (0-6); HEMATOCRIT 35.5 % (35.0-45.0); HEMOGLOBIN 11.6 g/dl (12.0-16.0); LYMPHOCYTES % (AUTO) 9.1 % (21-51); MEAN CORPUSCULAR HEMOGLOBIN 30.3 PG (27.0-31.0); MEAN CORPUSCULAR HGB CONC 32.6 g/dL (33.0-36.5); MEAN CORPUSCULAR VOLUME 92.8 FL (78-98); MEAN PLATELET VOLUME 9.3 FL (7.4-10.4); MONOCYTES # (AUTO) 0.9 X10'3 (0-0.9); MONOCYTES % (AUTO) 8.3 % (2-12); NEUTROPHILS # (AUTO) 8.7 X10'3 (1.8-7.7); NEUTROPHILS % (AUTO) 81.8 % (42-75); PLATELET COUNT 222 X10'3 (140-440); RED BLOOD COUNT 3.83 X10'6 (4.20-5.60); RED CELL DISTRIBUTION WIDTH 15.2 % (11.5-14.5); WHITE BLOOD COUNT 10.6 X10'3 (4.5-11.0)
[2019-05-18 11:20] LABS: PARTIAL THROMBOPLASTIN TIME 25 SECONDS (22-32)
[2019-05-18 11:23] LABS: ALANINE AMINOTRANSFERASE 28 U/L (12-78); ALBUMIN 3.6 G/DL (3.4-5.0); ALBUMIN/GLOBULIN RATIO 0.9 (1.1-1.5); ALKALINE PHOSPHATASE 70 IU/L (46-116); ANION GAP 10 (8-16); ASPARTATE AMINO TRANSFERASE 27 U/L (10-37); BLOOD UREA NITROGEN 23 MG/DL (7-18); BUN/CREATININE RATIO 17.2 (6.6-38.0); CALCIUM 9.2 MG/DL (8.5-10.1); CHLORIDE 104 MMOL/L (99-107); CREATININE 1.34 MG/DL (0.40-0.90); GLUCOSE 126 MG/DL (70-104); POTASSIUM 3.8 MMOL/L (3.5-5.1); SODIUM 148 MMOL/L (135-145); TOTAL CARBON DIOXIDE 33.7 MMOL/L (24-32); TOTAL PROTEIN 7.8 G/DL (6.4-8.2); eGFR 37 ML/MIN
--- NOTE | 2019-05-18 11:46 | NUR ---
PT FEELING MORE COMFORTABLE AND RESTING IN BED.
[2019-05-18] MEDS ORDERED: furosemide 10 MG/1 ML 10ml inj IV ONE (11:50)
[2019-05-18] MEDS ORDERED: heparin 25,000 UNIT/250ml bag 250 ML IV SCH (13:24)
[2019-05-18] MEDS ORDERED: normal saline 1000ml 1,000 ML IV SCH (13:24)
[2019-05-18] MEDS ORDERED: magnesium Cl slow-release 64mg tablet PO PRN (13:25)
[2019-05-18] MEDS ORDERED: magnesium hydroxide 30ml (MOM) UD suspension PO PRN (13:25)
[2019-05-18] MEDS ORDERED: morphine 2 MG/ML inj. syringe IV PRN (13:25)
[2019-05-18] MEDS ORDERED: albuterol 2.5 MG/3 ML nebule NEB PRN (13:25)
[2019-05-18] MEDS ORDERED: heparin 10,000 units/1 ML INJ IV PRN (13:25)
[2019-05-18] MEDS ORDERED: heparin 10,000 units/1 ML INJ IV ONE (13:25)
[2019-05-18] MEDS ORDERED: acetaminophen 325mg tablet PO PRN (13:25)
[2019-05-18] MEDS ORDERED: potassium Cl 20 mEq SR tablet PO PRN ×2 (13:25)
[2019-05-18] MEDS ORDERED: mag hydrox/Alum hydrox/simeth 30ml oral suspension PO PRN (13:25)
[2019-05-18] MEDS ORDERED: magnesium 2GM in 50ml NS 50 ML IV PRN (13:25)
[2019-05-18] MEDS ORDERED: magnesium 4gm in 100ml NS 100 ML IV PRN (13:25)
[2019-05-18] MEDS ORDERED: ondansetron/PF 4mg/2ml inj IV PRN (13:25)
[2019-05-18] MEDS ORDERED: potassium CL 10mEq/100ml bag 100 ML IV PRN ×2 (13:25)
[2019-05-18 14:15] LABS: MAGNESIUM 2.2 MG/DL (1.5-2.4)
--- NOTE | 2019-05-18 15:07 | NUR ---
ATTEMPTED TO GO INTO ROOM 12 FOR TRANSPORT TO FLOOR. DR MANNING IN ROOM WITH PATIENT WITH DOOR CLOSED HAVING " A SENSITIVE DISCUSSION"
--- NOTE | 2019-05-18 15:17 | NUR ---
CALLED NURSING GLOBAL COMPENSATION ANALYST TO TELL HER THAT PER DR MANNING PATIENT IS NOW COMFORT CARE
[2019-05-18] MEDS ORDERED: dronabinol 2.5mg capsule PO ONE (15:25)
[2019-05-18] MEDS ORDERED: dronabinol 2.5mg capsule PO PRN (15:25)
--- NOTE | 2019-05-18 15:47 | NUR ---
end heparin dripjessica helped with charting.
[2019-05-18 16:19] VITALS: BP 179/86
[2019-05-18] MEDS ORDERED: ROSU20TA31 PO (17:08)
[2019-05-18] MEDS ORDERED: FLUT1BLS4 PO (17:08)
[2019-05-18 18:00] VITALS: BP 154/64
--- NOTE | 2019-05-18 18:05 | NUR ---
Patient in room MED 311. I have received report from JANICE Galarza and had the opportunity to ask questions and assume patient care.
--- NOTE | 2019-05-18 18:24 | NUR ---
Problems reprioritized. Patient report given, questions answered & plan of care reviewed with JANICE Wallace.
[2019-05-18] MEDS ORDERED: IPRA3AMP31 PO (18:48)
[2019-05-18] MEDS ORDERED: METO100T14 PO (18:53)
[2019-05-18] MEDS: methylPREDNISolone sod succ 125mg/2ml vial IV SCH (21:21)
[2019-05-19] MEDS: morphine 2 MG/ML inj. syringe IV PRN (00:12)
[2019-05-19] MEDS: albuterol 2.5 MG/3 ML nebule NEB PRN ×3 (00:21→08:16)
[2019-05-19] MEDS: dronabinol 2.5mg capsule PO SCH ×4 (04:51→22:05)
--- NOTE | 2019-05-19 06:00 | NUR ---
[place]ee documentation: I have reviewed and agree with all interventions, assessments performed and documented by JANICE Wallace.
--- NOTE | 2019-05-19 06:00 | NUR ---
Problems reprioritized. Patient report given, questions answered & plan of care reviewed with JANICE Galarza.
[2019-05-19] MEDS ORDERED: K and/or MAG REPLACEMENT MC SCH (08:00)
[2019-05-19] MEDS ORDERED: non-formulary drug (Fluticasone/Umeclidin/Vilanter (Trelegy Ellipta 100-62.5-25) 1 PUFF) PO SCH (08:00)
--- NOTE | 2019-05-19 08:22 | NUR ---
Patient in room MED 311. I have received report from JANICE Wallace and JANICE Neal and had the opportunity to ask questions and assume patient care.
[2019-05-19] MEDS: methylPREDNISolone sod succ 125mg/2ml vial IV SCH ×3 (09:46→20:05)
[2019-05-19] MEDS ORDERED: FLU VACC QS2019-20 36MOS UP/PF 60 MCG/0.5 ML SYRINGE IMVAC ONE (10:00)
[2019-05-19] MEDS ORDERED: hyoscyamine 0.125mg TAB.SUBL SL PRN (10:20)
--- NOTE | 2019-05-19 10:45 | NUR ---
Malnutrition consult. Per documented weight history patient has not had any recent weight loss in the past year. Ate 100% of her protein on her dinner. Admitted with acute respiratory failure x2 days, h/o COPD, CAD, patient will be enrolled in hospice per MD note. She does have moderate 3+ non pitting BLE edema. Noted that patient is 88 year old female who's code status is DNR with comfort care. Patient does not have dentures. Is on a mechanical soft diet, grind all, and heart healthy diet. Patient is receiving marinol for appetite. No malnutrition at this time. Will follow. Addendum: 05/19/19 at [address] Amended: Links added.
[2019-05-19] MEDS: ipratropium/albuterol 3ml nebule NEB SCH ×4 (11:33→23:31)
--- NOTE | 2019-05-19 11:33 | NUR ---
Patient in room MED 311. I have received report from Erinn CAMACHO and had the opportunity to ask questions and assume patient care.
--- NOTE | 2019-05-19 12:38 | NUR ---
Problems reprioritized. Patient report given, questions answered & plan of care reviewed with JANICE Kraft.
[2019-05-19 13:45] VITALS: BP 155/62
--- NOTE | 2019-05-19 13:45 | NUR ---
patient arrived to floor into room 4016, patient a little short of breath from transferring but is stable and was able to catch breath after resting in bed
[2019-05-19 18:00] VITALS: BP_SYST 132; BP_SYST 140; BP_DIAS 61; BP_DIAS 66
--- NOTE | 2019-05-19 18:20 | NUR ---
Received report from Swapnil CAMACHO. Assumed care of patient.
--- NOTE | 2019-05-19 18:24 | NUR ---
Problems reprioritized. Patient report given, questions answered & plan of care reviewed with Nathalia RN.
[2019-05-20] MEDS: ipratropium/albuterol 3ml nebule NEB SCH ×6 (03:46→23:04)
[2019-05-20] MEDS: dronabinol 2.5mg capsule PO SCH ×4 (04:17→20:08)
[2019-05-20] MEDS: morphine 10mg/0.5ml (conc. morphine) oral syringe PO PRN ×2 (04:53→20:17)
--- NOTE | 2019-05-20 04:55 | NUR ---
patient was a little anxious this morning and was short of breath. helped reassure patient and calm her down. administered roxanol to help ease her short of breath.
--- NOTE | 2019-05-20 06:20 | NUR ---
Gave report to Inez CAMACHO.
--- NOTE | 2019-05-20 06:30 | NUR ---
Patient in room ORTHO 4016. I have received report from JANICE Jaffe and had the opportunity to ask questions and assume patient care.
[2019-05-20] MEDS: methylPREDNISolone sod succ 125mg/2ml vial IV SCH ×3 (08:53→21:00)
[2019-05-20 10:00] VITALS: BP 144/67
[2019-05-20] MEDS: morphine 2 MG/ML inj. syringe IV PRN ×3 (10:03→18:11)
--- NOTE | 2019-05-20 18:10 | NUR ---
Received report from JANICE Wiley.
--- NOTE | 2019-05-20 18:41 | NUR ---
Problems reprioritized. Patient report given, questions answered & plan of care reviewed with JANICE House.
[2019-05-20] MEDS: LORazepam 1 MG tablet PO PRN (20:16)
[2019-05-21] MEDS: dronabinol 2.5mg capsule PO SCH ×2 (02:58→10:07)
[2019-05-21] MEDS: ipratropium/albuterol 3ml nebule NEB SCH ×6 (03:00→23:02)
--- NOTE | 2019-05-21 03:13 | NUR ---
MD Silva notified of 2100 Solumedrol missed, no new orders, continue as scheduled.
--- NOTE | 2019-05-21 06:12 | NUR ---
Gave report to JANICE Wiley.
[2019-05-21] MEDS ORDERED: FLU VACC QS2019-20 36MOS UP/PF 60 MCG/0.5 ML SYRINGE IMVAC ONE (07:05)
[2019-05-21] MEDS: morphine 2 MG/ML inj. syringe IV PRN ×2 (08:29→18:38)
[2019-05-21] MEDS ORDERED: albuterol 2.5 MG/3 ML nebule NEB PRN (09:25)
[2019-05-21 10:00] VITALS: BP 197/81
[2019-05-21] MEDS: methylPREDNISolone sod succ 125mg/2ml vial IV SCH (10:07)
--- NOTE | 2019-05-21 18:20 | NUR ---
Report received from Inez CAMACHO, assumed care of patient.
[2019-05-21 22:00] VITALS: BP 148/61
[2019-05-22] MEDS: ipratropium/albuterol 3ml nebule NEB SCH ×6 (02:36→23:02)
[2019-05-22 06:00] VITALS: BP 133/57
--- NOTE | 2019-05-22 06:28 | NUR ---
Report given to JANICE Wiley.
[2019-05-22] MEDS: morphine 10mg/0.5ml (conc. morphine) oral syringe PO PRN ×5 (08:09→21:33)
[2019-05-22] MEDS ORDERED: furosemide 40mg/4ml inj IV STA (09:22)
--- NOTE | 2019-05-22 09:49 | NUR ---
Pt has extreme shortness of breath. 02 on 2L/NC. Spoke with Dr. Alex who ordered Lasix 40 mg IV now. Pt also requesting bunch catheter as she is having difficulty having her bed change done with shortness of breath. RR 36. Lasix 40 mg IV given. F/C inserted with 300 cc clear yellow urine returned immediately after catheter inserted. By 1300, pt had 1400 total out in her bunch catheter. Will continue to monitor
[2019-05-22 10:00] VITALS: BP 160/69
--- NOTE | 2019-05-22 14:00 | NUR ---
Called to pts room. Pt experiencing increased SOB and wheezing in bilateral lungs. Pt keeps pointing to chest. Pt has a non productive cough. Pt requested Roxanol po at this time. Pt continued to decline and RT was called for a breathing treatment. Pt called approximately 15 minutes after she received breathing treatment, and had increased shortness of breath, RR 36 - 40. Pt was given MS 2mg IV and Ativan po. Sat with pt per her request. Pt continued to have difficulty breathing. Pt slept approximately 15 minutes, then awoke and requested medication to help with her breathing. Roxanol given again approx 1 hr past the 3rd dose. Pt continues to be SOB without exertion. 02 @ 3l/NC. (1600) Pts Uke Driver arrived at bedside and sat with pt. Shortly after pts caregiver Monserrat arrived at pts bedside. Instructed CG to allow pt to rest without much talking as she is severely SOB. Pt awoke approx 30 minutes after CG arrival. Pt spoke to CG Monserrat, and asked if Monserrat can "assure me that Lacy's boyfriend, as well as another man could move out of pts home, and Monserrat replied "You know that is not going to happen ever Deborah." Pt experienced frustration and was very upset over Monserrat's comment. Pt immediately stated "I want to make sure that I have a Bill Payee or an Advance Directive, and I want to meet with Evelina (Developmental Psychologist) in the morning. Pts stated he would be here present when DEENA Hoyt makes a visit with the patient in the morning. gave me his phone number. TC placed to DEENA Szymanski phone voicemail at [phone]. Gave report to Kory Hoyt RN and also gave her the Uke Driver's phone number just in case DEENA Hoyt has any questions in the morning. Will continue to assess and monitor patient.
[2019-05-22] MEDS: LORazepam 1 MG tablet PO PRN (15:16)
--- NOTE | 2019-05-22 18:15 | NUR ---
Received report from JANICE Wiley. Assumed patient care.
[2019-05-23] MEDS: ipratropium/albuterol 3ml nebule NEB SCH ×3 (02:11→10:52)
--- NOTE | 2019-05-23 06:37 | NUR ---
Patient report given, questions answered and plan of care reviewed with JANICE Benton
--- NOTE | 2019-05-23 06:38 | NUR ---
Patient in room ORTHO 4016. I have received report from DONOVAN CAMACHO and had the opportunity to ask questions and assume patient care.
[2019-05-23] MEDS ORDERED: FLU VACC QS2019-20 36MOS UP/PF 60 MCG/0.5 ML SYRINGE IMVAC ONE (08:00)
[2019-05-23 10:00] VITALS: BP 134/56
--- NOTE | 2019-05-23 10:15 | NUR ---
Meeting with patient, her sign manufacturer and social insurance analyst and case mangement at this time, advanced directive filled out.
--- NOTE | 2019-05-23 11:35 | NUR ---
Discussed with patient if she would like to leave F/C in for comfort since she will be on hospice at home. Also asked her if she'd like something to help her have a BM since our documentation states 05/16 last BM. Patient states she'd like to keep the F/C and also that she'd like to wait and see on the bowel care since she recalls a BM yesterday. Plan to discharge at 2 pm today via [facility] today.
--- NOTE | 2019-05-23 14:15 | NUR ---
PATIENT DISCHARGED AT THIS TIME VIA [facility] ON 2 L N/C WITHOUT EVENT VIA GURNEY. GOING HOME ON HOSPICE WITH F/C LEFT IN. PATIENT CAREGIVER WILL BOX SPRING MAKER MEDICATIONS TO HAVE FOR HER [facility]OUGH [facility]. IV REMOVED. BELONGINGS SENT WITH PATIENT, DISCUSSED DISCHARGE INSTRUCTIONS WITH PATIENT, VERBALIZED UNDERSTANDING, NO NEW MEDICATION THAT [facility] ORDERED, PATIENT CARE IS BEING TRANSFERRED TO [facility]. ADVANCED DIRECTIVE SENT WITH PATIENT-INSTRUCTED VIVIANA (CAREGIVER) TO PLACE ON REFRIGERATOR FOR EASY ACCESS.
== END 2019-05-23 14:15 | disposition hospice, inpatient (51) | DRG 280 ==
LOC: ER 10:09 → ED HOLD 13:47 → MED 3N 16:00 → ORTHO 4S 05-19 13:30
PROVIDERS: ADMIT Family Medicine; ATTEND Family Medicine
PROC: 5A09357 Assistance with Respiratory Ventilation, Less than 24 Consecutive Hours, Continuous Positive Airway Pressure (ICD-10-PCS; principal; 2019-05-18)
DX: I21.4 Non-ST elevation (NSTEMI) myocardial infarction (principal); I50.33 Acute on chronic diastolic (congestive) heart failure; J96.21 Acute and chronic respiratory failure with hypoxia; I48.20 Chronic atrial fibrillation, unspecified; I25.10 Atherosclerotic heart disease of native coronary artery without angina pectoris; I34.0 Nonrheumatic mitral (valve) insufficiency; J43.9 Emphysema, unspecified; Z51.5 Encounter for palliative care; Z77.22 Contact with and (suspected) exposure to environmental tobacco smoke (acute) (chronic); Z82.49 Family history of ischemic heart disease and other diseases of the circulatory system; Z82.5 Family history of asthma and other chronic lower respiratory diseases; Z88.8 Allergy status to other drugs, medicaments and biological substances; I25.2 Old myocardial infarction; Z87.891 Personal history of nicotine dependence; Z95.1 Presence of aortocoronary bypass graft; Z99.81 Dependence on supplemental oxygen; Z95.5 Presence of coronary angioplasty implant and graft; Z90.49 Acquired absence of other specified parts of digestive tract
CPT/HCPCS: 36415; 36600; 71045; 80053; 82803; 83735; 83880; 84484; 85018; 85025; 85610; 85730; 87081; 93005; 94640; 94760; 96374; 96375; 99285; G0378; J1644; J1940; J2270; J2930; J7030; Q0167; Q2037